=== PATIENT | male | born 1990 | race African-American/Black ===

== ENCOUNTER 2017-03-12 03:58 | Emergency (ER) | payer SELFPAY ==
[~2017-03-12] VITALS: Ht 180.3 cm; Wt 115.7 kg
[2017-03-12 04:00] VITALS: BP 155/90
[2017-03-12] MEDS ORDERED: CEFTRIAXONE 500 MG VIAL ONE (04:26)
[2017-03-12] MEDS ORDERED: LIDOCAINE /MPF 1% VIAL 5 ML VIAL ONE (04:26)
[2017-03-12] MEDS ORDERED: predniSONE 20 MG TABLET ONE (04:26)
[2017-03-12] MEDS ORDERED: ALBUTEROL FS 2.5 MG/3 ML VIAL.NEB NEB ONE (04:30)
[2017-03-12] MEDS ORDERED: predniSONE 20 MG TABLET PO ONE (04:30)
[2017-03-12] MEDS ORDERED: CEFTRIAXONE 500 MG VIAL IM ONE (04:30)
[2017-03-12] MEDS ORDERED: IPRATROPIUM NEB FS 0.5 MG/2.5 ML AMPUL.NEB NEB ONE (04:30)
[2017-03-12] MEDS ORDERED: ALBUTEROL FS 2.5 MG/0.5 ML VIAL.NEB ONE (04:32)
[2017-03-12] MEDS ORDERED: IPRATROPIUM NEB FS 0.5 MG/2.5 ML AMPUL.NEB ONE (04:32)
== END 2017-03-12 05:56 | disposition home or self-care (01) ==
LOC: ER 04:00
DX: J98.01 Acute bronchospasm (principal); J45.909 Unspecified asthma, uncomplicated; G43.909 Migraine, unspecified, not intractable, without status migrainosus; Z20.2 Contact with and (suspected) exposure to infections with a predominantly sexual mode of transmission
CPT/HCPCS: A4606; J0696; J3490; Z7610